=== PATIENT | male | born 1960 | race Caucasian/White ===

== ENCOUNTER → 2016-12-11 | Day surgery (SDC) | payer MEDICARE, OTHER ==
[~2016-12-11] MED LIST: ANTI-DIARRHEAL2 M1 PO; CENTRUM SILVER1 EAC2 PO; D3-5050000 UNIT PO; DEBROX OTIC DRO15 ML AD; KETOCONAZOLE120 ML TOP; LEVEMIR SUBQ; LISINOPRIL2.5 MG PO; LISINOPRIL30 MG PO; LOMOTIL TABLET1 TAB PO; LORTAB 5/500 TA1 TA1 PO; METFORMIN HCL500 M1 PO; NEURONTIN100 MG PO; NO MEDICATIONS; OMEGA-31000 M1 PO; PROPRANOLOL PO; TENORMIN25 MG PO; TRIAMCINOLONE AC1 GM EXT; TYLENOL EXTRA500 M1 PO; ZESTRIL10 M1 PO
--- NOTE | ~2016-12-11 | OR ---
Unit #: [id number] #: [id number] Patient: JENNIFER JEROME [id number] [address] [place], [place] [address] [id number] O MR#: [id number] NAME: JENNIFER JEROME ROOM: Date of Procedure: 12/11/2016 Admission Date: 12/11/2016 Surgeon: Hong Moctezuma M.D. : 1960 Attending Physician: Hong Moctezuma M.D. Referring Physician: Hong Moctezuma M.D. Primary Care Physician: Garry Boo M.D. OPERATIVE REPORT PROCEDURES PERFORMED Colonoscopy with snare polypectomy, colonoscopy with multiple polypectomies, hemoclip application as well as tattooing. INDICATIONS FOR PROCEDURE The patient with average risk for colorectal cancer, here for screening colonoscopy. MEDICATIONS Monitored anesthesia. POSTOPERATIVE FINDINGS 1. Large 5 cm polyp, transverse colon, snared piecemeal and sent for histopathology. 2. This area was hemoclipped and tattooed for future reference. 3. Multiple other polyps, one in ascending colon, two in transverse colon, one in descending colon were snared and sent separately for histopathology. Several of them were over a 1 cm in size. 4. Two polyp site at the dentate line, possible squamous papilloma, cannot rule out adenoma or carcinoma that were removed using hot snare polypectomy and sent separately for histopathology. PLAN 1. Follow up on the pathology report. 2. Repeat colonoscopy in 3 months if the biopsies show no malignancy. DESCRIPTION OF PROCEDURE The patient was explained of the procedure, risks, and benefits along with the risks and benefits of anesthesia. Informed consent was obtained from manager trust. He was brought to the endoscopy room. Propofol anesthesia was given. Rectal exam was done, which was normal. Colonoscope was lubricated, passed up the rectum, advanced under direct vision all the way to the cecum. Cecum was identified by ileocecal valve and appendiceal orifice. At this point, I started to pull the scope out carefully looking. Findings have been described above. I retroflexed in the rectum to look at perianal area, internal hemorrhoids noted. Two lesions were removed using hot snare polypectomy from the dentate line. No significant bleeding was seen. The scope was gently pulled out. He tolerated it well. Dictated by... Unit #: [id number] #: [id number] Patient: JENNIFER JEROME M.D. SKJ/nani TD: 12/12/2016 00:04 JOB #: [id number] OPERATIVE REPORT X Hong Moctezuma MD PROCEDURE OPERATIVE NOTE
== END | disposition home or self-care (01) ==
LOC: COPS 10:44
DX: Z12.11 Encounter for screening for malignant neoplasm of colon (principal); D12.3 Benign neoplasm of transverse colon; D12.4 Benign neoplasm of descending colon; D12.2 Benign neoplasm of ascending colon; K64.8 Other hemorrhoids; I10 Essential (primary) hypertension; N17.9 Acute kidney failure, unspecified; Z79.899 Other long term (current) drug therapy
CPT/HCPCS: 82947; 88305; J3010

== ENCOUNTER 2017-03-26 20:28 | Emergency (ER) | payer MEDICARE, OTHER ==
--- NOTE | ~2017-03-26 | CR72 ---
[facility] RADIOLOGY TEXT RESULTS PATIENT: JENNIFER JEROME LOCATION: [facility] : 62 UNIT #: [id number] AGE: [address]: Cheo Martin MD SEX: M ORDER DR: [id number] [facility] [address]. [place], [place] [address] [id number] MR#: [id number] Acc #: [id number] NAME: JENNIFER JEROME : 1960 SEX: M STUDY DATE/TIME: 03/26/2017 22:21 UNIT: BOB ROOM: STUDY DESCRIPTION: CR Chest Single View Portable Attending Physician: Cheo Martin M.D. Ordering Physician: Cheo Martin M.D. Primary Care Physician: Garry Boo M.D. MEDICAL IMAGING REPORT This report is preliminary unless electronic signature is present EXAM Portable chest INDICATION Shortness of air for the past 2 days. PROCEDURE Frontal view of the chest. COMPARISON 10/10/2014 FINDINGS Stable heart size. There is a 2.3 cm somewhat nodular density in the left lower lobe. This may represent overlapping shadows. Otherwise lungs are clear. No pleural fluid or pneumothorax. IMPRESSION 2.3 cm questionable nodular density in the left lower lobe, which possibly could represent overlapping shadows. Otherwise, no acute findings. This can be followed with a short-interval follow up chest radiograph. If the abnormality persists, a chest CT may be warranted at that time. Dictated by... Guido Huber M.D. THIS IS AN ELECTRONICALLY VERIFIED REPORT Guido Huber M.D. at 03/27/2017 9:59 PM EED/steve TD: 03/27/2017 07:07 JOB #: [id number] [facility] RADIOLOGY TEXT RESULTS PATIENT: JENNIFER JEROME LOCATION: [facility] : 62 UNIT #: [id number] AGE: [address]: Cheo Martin MD SEX: M ORDER DR: MEDICAL IMAGING REPORT Page 1 of 1 COPY
[2017-03-26 23:35] LABS: BASOPHIL# 0.2 X10e3 (0-0.3); BASOPHIL% 1.3 % (0-2.5); EOSINOPHIL# 0.8 X10e3 (0-0.7); EOSINOPHIL% 4.6 % (0.0-7.0); HEMOGLOBIN 12.7 gm/dL (13.0-16.0); LYMPHOCYTE# 2.3 X10e3 (1.0-3.5); MEAN CELL VOLUME 90.7 FL (83-96); MEAN CORPUSCULAR HEMOGLOBIN 28.8 PG (28-34); MEAN CORPUSCULAR HGB CONC 31.7 g/dL (30-36); MEAN PLATELET VOLUME 10.8 FL (6.5-11.5); MONOCYTE# 1.3 X10e3 (0-1.0); MONOCYTE% 7.5 % (3.0-12.0); NEUTROPHIL# 12.1 X10e3 (1.5-7.1); NEUTROPHIL% 72.6 % (40-75); PLATELET COUNT 152 X10e3 (140-420); RED BLOOD COUNT 4.41 X10e (3.90-5.60); RED CELL DISTRIBUTION WIDTH 14.5 % (11.0-15.5); WHITE BLOOD COUNT 16.7 X10e3 (4.0-10.5)
[2017-03-26 23:36] LABS: DIFF IND YES
[2017-03-26 23:51] LABS: BUN/CREATININE RATIO 17.69; CALCIUM SERUM 8.9 mg/dL (8.4-10.2); CREATININE SERUM 1.3 mg/dL (0.6-1.4)
[2017-03-26 23:52] LABS: PLATELET ESTIMATE NORMAL (NORMAL)
[2017-03-26 23:53] LABS: POLYCHROMASIA SL
== END 2017-03-27 00:44 | disposition home or self-care (01) ==
LOC: CED 20:28
PROVIDERS: Emergency Medicine
DX: J06.9 Acute upper respiratory infection, unspecified (principal); E11.9 Type 2 diabetes mellitus without complications; I10 Essential (primary) hypertension; Z79.899 Other long term (current) drug therapy
CPT/HCPCS: 36415; 71010; 80048; 85025; 94640; 99283

== ENCOUNTER → 2017-04-15 | Day surgery (SDC) | payer MEDICARE, OTHER ==
--- NOTE | ~2017-04-15 | OR ---
Unit #: [id number] #: [id number] Patient: JENNIFER JEROME [id number] [address] [place], [place] [address] [id number] O MR#: [id number] NAME: JENNIFER JEROME ROOM: Date of Procedure: 04/15/2017 Admission Date: 04/15/2017 Surgeon: Hong Moctezuma M.D. : 1960 Attending Physician: Hong Moctezuma M.D. Primary Care Physician: Garry Boo M.D. OPERATIVE REPORT PROCEDURE PERFORMED Colonoscopy with snare polypectomy. INDICATIONS FOR PROCEDURE The patient with history of large polyp with high-grade dysplasia, also had a lesion right at the dentate line. There were showing neoplastic changes, undergoing repeat evaluation to ensure complete removal of lesions. MEDICATIONS Monitored anesthesia. POSTOPERATIVE FINDINGS 1. Previous polypectomy site in the transverse colon as well as in the dentate line appears to be completely clear. 2. Small polyp seen in transverse colon was snared and sent for histopathology. 3. Rest of the mucosa was normal and healthy. PLAN Given the previous findings, I would recommend a repeat colonoscopy in 3 years. DESCRIPTION OF PROCEDURE The patient was explained of the procedure, risks, and benefits along with the risks and benefits of anesthesia. He was brought to the endoscopy room. Propofol anesthesia was given. Rectal exam was done, which was normal. Colonoscope was lubricated, passed up the rectum, advanced under direct vision all the way to the cecum. Cecum was identified by ileocecal valve and appendiceal orifice. Findings have been detailed above. Two polyps were snared in transverse colon. I retroflexed in the rectum, no abnormal findings seen here. Scope was gently pulled out. He tolerated it well. No major complications were seen. Dictated by... Lnida Zafar/nani TD: 04/15/2017 22:53 JOB #: [id number] Unit #: [id number] #: [id number] Patient: JENNIFER JEROME OPERATIVE REPORT Page 1 of 1 X Hong Moctezuma MD PROCEDURE OPERATIVE NOTE
== END | disposition home or self-care (01) ==
LOC: COPS 04-07 09:00
DX: D12.3 Benign neoplasm of transverse colon (principal); E11.9 Type 2 diabetes mellitus without complications; Z86.010 Personal history of colon polyps; Z98.890 Other specified postprocedural states; Z79.84 Long term (current) use of oral hypoglycemic drugs; Z79.899 Other long term (current) drug therapy
CPT/HCPCS: 82947; 88305; J2250